=== PATIENT | male | born 1955 | race Caucasian/White ===

== ENCOUNTER 2023-10-01 17:36 | Inpatient (IN) | payer OTHER, MEDICARE ==
[2023-10-01 18:07] VITALS: BMI 26.4
[2023-10-01] MEDS ORDERED: Ipratropium/Albuterol 3 ML NEB NEB PRN (19:16)
[2023-10-01] MEDS ORDERED: Pregabalin 75 MG CAP PO PRN (19:16)
[2023-10-01] MEDS ORDERED: Polyethylene Glycol 3350 17 GM Packet PO PRN (19:25)
[2023-10-01] MEDS ORDERED: Ondansetron ODT 4 MG TAB PO PRN (19:25)
[2023-10-01] MEDS: Apixaban 5 MG TAB PO SCH (21:14)
[2023-10-01] MEDS: Lantus 1000 UNITS/10 ML VIAL SC SCH (21:15)
[2023-10-01] MEDS: Atorvastatin Calcium 40 MG TAB PO SCH (21:15)
[2023-10-01] MEDS: Tamsulosin HCl 0.4 MG CAP PO SCH (21:15)
[2023-10-01] MEDS: Gabapentin 100 MG CAP PO SCH (21:28)
[2023-10-02 05:59] LABS: ALT (SGPT) 17 U/L (8-55); AST (SGOT) 17 U/L (5-34); Albumin 3.7 g/dL (3.4-4.8); Alkaline Phosphatase 127 U/L (40-110); Anion Gap 19 mmol/L (10-20); BUN (Urea Nitrogen) 70 mg/dL (8.4-25.7); Bilirubin, Total 0.5 mg/dL (0.2-1.2); Calc. Creatinine Clearance 9 mL/min (70-130); Calcium 9.4 mg/dL (7.8-10.44); Carbon Dioxide 22 mmol/L (23-31); Chloride 104 mmol/L (98-107); Estimated GFR 7; Glucose 117 mg/dL (80-115); Potassium 4.4 mmol/L (3.5-5.1); Protein, Total 7.7 g/dL (5.8-8.1); Sodium 141 mmol/L (136-145)
[2023-10-02 06:00] LABS: Band 1 % (5-11); Eosinophils 2 % (0-10); Hematocrit 35.3 % (42.0-52.0); Hemoglobin 10.9 g/dL (14.0-18.0); Lymphocytes 15 % (21-51); MDiff Complete? YES; Mean Corpuscular HGB CONC 30.8 g/dL (32.0-36.0); Mean Corpuscular Volume 90.8 fl (78.0-98.0); Mean Platelet Volume 4.9 fL (7.4-10.4); Monocytes 6 % (0-10); Neutrophil 75 % (42-75); Platelet Adequacy Comment Appears Adequate; Platelet Count 194 10x3/uL (130-400); RBC Distribution Width 13.4 % (11.5-14.5); Red Blood Cell (RBC) Count 3.89 mill/uL (4.70-6.10); White Blood Cell (WBC) Count 8.4 10x3/uL (4.8-10.8)
[2023-10-02] MEDS: CO Q-10 CAPSULE 100 MG PO SCH (08:56)
[2023-10-02] MEDS: Cholecalciferol 1,000 UNITS (25 MCG) TAB PO SCH (08:56)
[2023-10-02] MEDS: Amiodarone 200 MG TAB PO SCH (08:56)
[2023-10-02] MEDS: HumaLOG 300 UNITS/3 ML VIAL SC SCH (08:57)
[2023-10-02] MEDS ORDERED: Pantoprazole DR 40 MG TAB PO SCH (09:00)
[2023-10-02] MEDS: Lansoprazole 3 MG/ML ORAL SUSPENSION PO SCH (09:02)
[2023-10-02] MEDS: Cefuroxime 250 MG TAB PO SCH (10:06)
[2023-10-02] MEDS: Lidocaine 4% Patch TD SCH (10:31)
[2023-10-02] MEDS: Acetaminophen 325 MG TAB PO PRN (10:31)
[2023-10-02] MEDS: oxyCODONE 5 MG TAB PO PRN (16:31)
[2023-10-02] MEDS: Transdermal Patch Removal TOP SCH (23:45)
[2023-10-03 08:59] LABS: #Basophils 0.1 thou/uL (0.0-0.2); #Lymphocytes 0.9 thou/uL (1.20-3.40); #Monocytes 1.2 thou/uL (0.11-0.59); #Neutrophils 13.8 thou/uL (1.40-6.50); %Basophils 0.4 % (0.0-1.0); %Eosinophils 0.3 % (0.0-10.0); %Lymphocytes 5.6 % (21.0-51.0); %Monocytes 7.3 % (0.0-10.0); %Neutrophils 86.5 % (42.0-75.0); Hematocrit 35.3 % (42.0-52.0); Hemoglobin 11.3 g/dL (14.0-18.0); Mean Corpuscular HGB CONC 31.9 g/dL (32.0-36.0); Mean Corpuscular Hemoglobin 28.9 pg (27.0-31.0); Mean Corpuscular Volume 90.6 fl (78.0-98.0); Mean Platelet Volume 5.3 fL (7.4-10.4); Platelet Count 207 10x3/uL (130-400); RBC Distribution Width 13.3 % (11.5-14.5); White Blood Cell (WBC) Count 15.9 10x3/uL (4.8-10.8)
[2023-10-03 09:12] LABS: ALT (SGPT) 22 U/L (8-55); AST (SGOT) 25 U/L (5-34); Albumin 3.7 g/dL (3.4-4.8); Alkaline Phosphatase 137 U/L (40-110); Anion Gap 26 mmol/L (10-20); BUN (Urea Nitrogen) 98 mg/dL (8.4-25.7); Bilirubin, Total 0.5 mg/dL (0.2-1.2); CK (CPK) 823 U/L (30-200); Calc. Creatinine Clearance 7 mL/min (70-130); Calcium 9.3 mg/dL (7.8-10.44); Carbon Dioxide 18 mmol/L (23-31); Chloride 102 mmol/L (98-107); Estimated GFR 5; Globulin 3.8 g/dL (2.4-3.5); Glucose 215 mg/dL (80-115); Potassium 4.8 mmol/L (3.5-5.1); Protein, Total 7.5 g/dL (5.8-8.1); Sodium 141 mmol/L (136-145)
[2023-10-03 09:16] LABS: Troponin I 0.039 ng/mL (< 0.028)
[2023-10-03 11:59] LABS: White Blood Cell (WBC) Count 18.2 10x3/uL (4.8-10.8)
[2023-10-03 12:04] LABS: Base Excess-Venous -5.7 mmol/L (-2.0 to 3.0); Bicarbonate (HCO3v) 19.8 mmol/L (22.0-28.0); CO2 Tension (PvCO2) 37.8 mmHg (42.0-51.0); Calcium, Ionized 1.03 mmol/L (1.15-1.33); Chloride 108 mmol/L (98-107); Hemoglobin - Calc 12.1 g/dL (14.0-18.0); Potassium 4.9 mmol/L (3.5-5.1); Sodium 137 mmol/L (138-145); T. Carbon Dioxide 20.9 mmol/L (22.0-28.0); vO2 Saturation-calc 99.4 % (60.0-85.0)
[2023-10-03 12:09] LABS: ALT (SGPT) 22 U/L (8-55); AST (SGOT) 27 U/L (5-34); Albumin 3.7 g/dL (3.4-4.8); Alkaline Phosphatase 139 U/L (40-110); Anion Gap 26 mmol/L (10-20); BUN (Urea Nitrogen) 101 mg/dL (8.4-25.7); Bilirubin, Total 0.5 mg/dL (0.2-1.2); CK (CPK) 1143 U/L (30-200); Calc. Creatinine Clearance 7 mL/min (70-130); Calcium 9.3 mg/dL (7.8-10.44); Carbon Dioxide 17 mmol/L (23-31); Chloride 102 mmol/L (98-107); Estimated GFR 5; Globulin 3.9 g/dL (2.4-3.5); Glucose 228 mg/dL (80-115); Potassium 4.9 mmol/L (3.5-5.1); Protein, Total 7.6 g/dL (5.8-8.1); Sodium 140 mmol/L (136-145); Troponin I 0.057 ng/mL (< 0.028)
[2023-10-03 12:12] VITALS: BMI 26.4
[2023-10-03 13:48] LABS: Bilirubin Small (Negative); Blood, Urine Large (Negative); Clarity Cloudy (Clear); Glucose, Urine (Dipstick) Negative (Negative); Ketone, Urine 15 mg/dL (Negative); Leukocyte Large (Negative); Nitrite Positive (Negative); Protein, Urine (Dipstick) > or equal to 300 mg/dL (Neg-Trace); Specific Gravity, Urine 1.025 (1.005-1.030); pH, Urine 5.5 (5.0-9.0)
[2023-10-03 13:58] LABS: Bacteria/HPF 4+ HPF (None Seen); RBC/HPF Greater than 50 HPF (0-3); Squamous Epithelial None Seen HPF (0-3); WBC/HPF Greater Than 50 HPF (0-3)
[2023-10-03] MEDS: Sodium Chloride 0.9% 250 ML 250 ML IV SCH (14:00)
[2023-10-03 14:21] VITALS: BP 128/73; TEMP 98.9
[2023-10-03] MEDS: cefTRIAXone\\ROCEPHIN 1 GM in Sodium Chloride 0.9% 100 ML IVPB SCH (15:05)
[2023-10-03] MEDS: Sodium Chloride 0.9% 250 ML IV SCH (15:30)
[2023-10-04] MEDS ORDERED: CEFTAZIDIME IVPB SCH (18:00)
== END 2023-10-03 15:15 | disposition short-term general hospital (02) | DRG 559 ==
LOC: MADMS 17:36
PROVIDERS: ADMIT Family Medicine; ATTEND Family Medicine
DX: S22.41XD Multiple fractures of ribs, right side, subsequent encounter for fracture with routine healing (principal); N18.6 End stage renal disease; E87.20 Acidosis, unspecified; N39.0 Urinary tract infection, site not specified; I13.2 Hypertensive heart and chronic kidney disease with heart failure and with stage 5 chronic kidney disease, or end stage renal disease; I50.30 Unspecified diastolic (congestive) heart failure; I25.810 Atherosclerosis of coronary artery bypass graft(s) without angina pectoris; W18.30XD Fall on same level, unspecified, subsequent encounter; I48.0 Paroxysmal atrial fibrillation; E11.22 Type 2 diabetes mellitus with diabetic chronic kidney disease; E78.5 Hyperlipidemia, unspecified; Z95.1 Presence of aortocoronary bypass graft; Z79.01 Long term (current) use of anticoagulants; Z99.2 Dependence on renal dialysis; Z79.899 Other long term (current) drug therapy; Z90.89 Acquired absence of other organs; Z87.891 Personal history of nicotine dependence; Z79.4 Long term (current) use of insulin; R53.81 Other malaise; Z88.8 Allergy status to other drugs, medicaments and biological substances
CPT/HCPCS: 36416; 71045; 80053; 81001; 82010; 82330; 82550; 82803; 83605; 83880; 84484; 85025; 85048; 87040; 87086; 36415-59; J0696; J1815; J3490; J7050